=== PATIENT | female | born 1940 | race Caucasian/White ===

== ENCOUNTER 2019-08-13 18:26 | Emergency (ER) | payer MEDICARE, SELFPAY ==
[2019-08-13 18:33] VITALS: BP 150/81; PULSE 85; RESP 20; TEMP 37.1; O2SAT 98
--- NOTE | 2019-08-13 18:46 | ED.URI ---
HPI - URI/Sore Throat General Chief Complaint: Upper Respiratory Infection Stated Complaint: sinus pressure/chest congestion Time Seen by Provider: 08/13/19 18:51 Source: patient and family History of Present Illness HPI Narrative: Patient presents with a 2-week history of nasal congestion sinus pressure and tenderness. Patient uses Flonase daily for her symptoms taking Mucinex with minimal relief. No fever no shortness of breath no chest pain. Patient has asthma and uses her nebulizer machine as prescribed. Patient requests a refill for her albuterol for her machine. MD elicited complaint: cough, nasal congestion and sinus pain Related Data Home Medications Medication Instructions Recorded Confirmed cetirizine 10 mg capsule 10 mg PO cap 04/14/19 cholecalciferol (vitamin D3) 25 2,000 unit PO DAILY cap 04/14/19 08/13/19 mcg (1,000 unit) capsule cyclosporine 0.05 % eye drops in a 1 drop EACH EYE Q12H 04/14/19 08/13/19 dropperette levothyroxine 75 mcg tablet 75 mcg PO DAILY 04/14/19 08/13/19 vitamin A-vit C-vit E-zinc-Cu 2 tablet PO BID 04/14/19 08/13/19 fluticasone propionate [Flovent 1 puff INHALATION Q12H 08/13/19 08/13/19 HFA] Allergies Allergy/AdvReac Type Severity Reaction Status Date / Time pollen extracts Allergy Unknown unknown Verified 04/14/19 14:58 Review of Systems Review of Systems: Narrative: CONSTITUTIONAL: Denies chills, or sweats. Reports fever and generalized body aches EYES: Denies visual changes, redness, or discharge. ENT: Denies otalgia. Reports nasal congestion runny nose and sore throat CARDIOVASCULAR: Denies chest pain, palpitations, or edema. RESPIRATORY: Denies dyspnea. Reports occasional cough GASTROINTESTINAL: Denies abdominal pain, nausea, vomiting, or diarrhea. GENITOURINARY: Denies dysuria or hematuria. SKIN: Denies rash or itching. MUSCULOSKELETAL: Denies back pain, joint pain, or myalgia. Reports generalized body aches NEUROLOGIC: Denies headache, numbness, or weakness. PSYCHIATRIC: Denies anxiety or depression. [facility] Past Medical History Medical History Asthma High cholesterol History of pacemaker Hypothyroid Surgical History Surgical History History of appendectomy History of cataract extraction History of hysterectomy History of tonsillectomy Family History Family History Mother Family history of malignant neoplasm of breast in first degree relative Carcinoma of colon Father Family history of cardiovascular disease Social History Social History Smoking status: Former smoker Smoking end date: 06/04/1965 Alcohol intake: never Comments At time of signature, agree with nursing past medical, surgical, social and family history. There is no relevant family history pertinent to the presenting complaint Exam Narrative: Exam Narrative: The patient is a well-developed, well-nourished in no acute distress. SKIN: Skin is warm and dry without erythema, swelling or exudate. There is good turgor. No tenting. HEAD: Atraumatic. Normocephalic. No temporal or scalp tenderness. EYES: Moist and bright. Sclera and conjunctivae normal. No discharge. PERRLA. Extraocular motions intact. Gross visual acuity intact. EARS: Pinna is normal shape and contour. Clear external auditory canals. TM pearly valdovinos with good cone of light, no erythema or suppuration. Bilateral cerumen noted no gross hearing deficit. NOSE: pink, moist mucosa with good air movement. Clear rhinorrhea without nasal flaring. Septum midline. Mild maxillary sinus pressure and tenderness Mouth: moist mucous membranes. THROAT; mild erythema noted to posterior oropharynx with moderate postnasal drainage. Without exudate or ulceration.. Uvula midline. Normal movement of soft palate. NECK: Supple a
== END 2019-08-13 19:00 | disposition home or self-care (01) ==
PROVIDERS: Emergency Provider Nurse Practitioner Family; PCP Family Medicine
DX: J32.9 Chronic sinusitis, unspecified (principal); J40 Bronchitis, not specified as acute or chronic; Z87.891 Personal history of nicotine dependence; J45.909 Unspecified asthma, uncomplicated; E78.00 Pure hypercholesterolemia, unspecified; E03.9 Hypothyroidism, unspecified; Z95.0 Presence of cardiac pacemaker; Z98.49 Cataract extraction status, unspecified eye
CPT/HCPCS: 99213; G0463

== ENCOUNTER → 2019-12-15 09:08 | Outpatient (REF) | payer MEDICARE, SELFPAY | LOC: ANHLAB 09:08 | PROVIDERS: PCP Family Medicine; Visit Provider Nurse Practitioner | DX: L57.0 Actinic keratosis (principal) | CPT/HCPCS: 88305 ==

== ENCOUNTER 2020-03-03 11:50 | Emergency (ER) | payer MEDICARE, SELFPAY ==
--- NOTE | ~2020-03-03 | XR_ITS ---
EXAMINATION: XR chest 2V DATE: 03/03/2020 12:21 INDICATION: Cough and shortness of breath and wheezing. TECHNIQUE: Frontal and lateral views of the chest were obtained. COMPARISON: Chest 2 views 11/16/2014 FINDINGS: The chest demonstrates clear lungs without pneumonia, pleural effusion, or pneumothorax. Th e heart size is normal. There is a left chest wall pacer with leads in the right atrium and right cady tricle. There are prominent paracardial fat pads. There is an old healed fracture of left eighth rib. IMPRESSION: 1. No acute cardiopulmonary disease. Reviewed, dictated and finalized at location A.
[2020-03-03 12:00] VITALS: BP 117/66; PULSE 65; RESP 20; TEMP 37; O2SAT 97
--- NOTE | 2020-03-03 12:04 | ED.URI ---
HPI - URI/Sore Throat General Chief Complaint: Upper Respiratory Infection Stated Complaint: cough/chest tightness Time Seen by Provider: 03/03/20 12:04 Source: patient and RN notes reviewed History of Present Illness HPI Narrative: Patient is a 79-year-old female who presents the urgent care with complaints of 2-week persistent chest congestion, shortness of breath and cough. Patient states that approximately 1 month ago she was exposed to COVID while out to eat with her friend who tested positive the day after. Patient states that she was also tested 1 month ago, and her test was negative. Patient was not symptomatic at the time of her test. Patient became symptomatic starting with sinus symptoms and postnasal drainage approximately 2 weeks ago which is turned into the persistent white productive harsh cough, right rib pain and constant shortness of breath. Patient states that she has been doing 3-4 breathing treatments per day as well as using her inhaler and Singulair without any improvement. Patient denies any chest pains. States that she has been using Tylenol but denies of any known fever. Reports of loose stools for the past week. Denies of any vomiting. Patient also reports that her spouse has taken no precautions around her and has not been symptomatic. No other acute complaints. No acute distress noted. Patient aware of the plan of care. Some parts of this dictation were generated by voice recognition software and may contain typographical and/or grammatical inaccuracies. Related Data Home Medications Medication Instructions Recorded Confirmed cholecalciferol (vitamin D3) 25 2,000 unit PO DAILY cap 04/14/19 03/03/20 mcg (1,000 unit) capsule vitamin A-vit C-vit E-zinc-Cu 2 tablet PO BID 04/14/19 03/03/20 fluticasone propionate [Flovent 1 puff INHALATION Q12H 08/13/19 03/03/20 HFA] cetirizine [Zyrtec] 10 mg PO DAILY 03/03/20 03/03/20 cyclosporine [Restasis] 1 drp OPHTHALMIC (EYE) Q12H 03/03/20 03/03/20 montelukast [Singulair] 10 mg PO DAILY 03/03/20 03/03/20 vit C,Y-Nv-bhbfr-lutein-zeaxan 1 tablet PO BID 03/03/20 03/03/20 [PreserVision AREDS-2] Allergies Allergy/AdvReac Type Severity Reaction Status Date / Time pollen extracts Allergy Unknown unknown Verified 01/12/20 15:47 Review of Systems Review of Systems: Narrative: CONSTITUTIONAL: Denies fever, chills, or sweats. EYES: Denies visual changes, redness, or discharge. ENT: Denies rhinorrhea, congestion, sore throat, or otalgia. CARDIOVASCULAR: Denies chest pain, palpitations, or edema. RESPIRATORY: Reports a persistent productive cough with dyspnea and right rib pains GASTROINTESTINAL: Reports of loose stools GENITOURINARY: Denies dysuria or hematuria. SKIN: Denies rash or itching. MUSCULOSKELETAL: Denies back pain, joint pain, or myalgia. NEUROLOGIC: Denies headache, numbness, or weakness. All other systems reviewed are negative, except as documented in HPI. PMFSH Social History Social History Smoking status: Former smoker Smoking end date: 06/04/1965 Alcohol intake: never Comments At the time of my signature, I reviewed and agree with the nursing past medical, surgical, social, and family history. There is no relevant family history pertinent to the patient complaint. Exam Narrative: Exam Narrative: GENERAL: This is a well-nourished, well-developed patient, in no apparent distress. HEAD: normocephalic, atraumatic. EYES: PERRL. Sclera clear/white. Vision is grossly intact. EARS: External ears normal, auditory canals clear and without drainage, TMs normal without perforation. Hearing grossly intact. NOSE: External nose normal with no obvious nasal discharge, bilateral erythemic nares with clear rhinorrhea. THROAT: Mucous membranes moist, posterior pharynx clear. Mild postnasal drainage NECK: Neck supple CARDIOVASCULAR: Regular rate and rhythm without murmurs, gallops, or rubs. RESP
== END 2020-03-03 12:45 | disposition home or self-care (01) ==
PROVIDERS: Emergency Provider Nurse Practitioner Family; PCP Family Medicine
DX: J40 Bronchitis, not specified as acute or chronic (principal); Z87.891 Personal history of nicotine dependence; E78.00 Pure hypercholesterolemia, unspecified; Z95.0 Presence of cardiac pacemaker; E03.9 Hypothyroidism, unspecified
CPT/HCPCS: 71046; 87804; 99213; G0463

== ENCOUNTER 2020-03-16 14:18 | Emergency (ER) | payer MEDICARE, SELFPAY ==
[2020-03-16 14:30] VITALS: BP 146/69; PULSE 75; RESP 20; TEMP 36.7; O2SAT 97
--- NOTE | 2020-03-16 14:36 | ED.SKABFB ---
HPI - Skin/Abscess/Foreign Bdy General Chief complaint: Skin/Abscess/Foreign Body Stated complaint: upper left leg rash Time Seen by Provider: 03/16/20 14:41 Source: patient History of Present Illness HPI narrative: Patient presents with an itchy rash to her left inner thigh. Patient states is been there for about 1 week. Patient is concerned that it might be scabies states she was at a friend's house 2 weeks ago and they had scabies. No rash between her fingertips no rash between the webs of her fingers no way rash to the baseline. Patient only has 1 isolated area to her left inner thigh. Patient also reports that she is highly allergic to poison charisma and that her has been outside burning leaves and could have possibly picked up poison charisma from the . No streaking no drainage no concern for cellulitis. Related Data Home Medications Medication Instructions Recorded Confirmed cholecalciferol (vitamin D3) 25 2,000 unit PO DAILY cap 04/14/19 03/16/20 mcg (1,000 unit) capsule vitamin A-vit C-vit E-zinc-Cu 2 tablet PO BID 04/14/19 03/16/20 tablet fluticasone propionate [Flovent 1 puff INHALATION Q12H 08/13/19 03/16/20 HFA] cetirizine [Zyrtec] 10 mg PO DAILY 03/03/20 03/16/20 cyclosporine [Restasis] 1 drp OPHTHALMIC (EYE) Q12H 03/03/20 03/16/20 montelukast [Singulair] 10 mg PO DAILY 03/03/20 03/16/20 vit C,A-Ts-xatag-lutein-zeaxan 1 tablet PO BID 03/03/20 03/16/20 [PreserVision AREDS-2] Allergies Allergy/AdvReac Type Severity Reaction Status Date / Time pollen extracts Allergy Unknown unknown Verified 01/12/20 15:47 Review of Systems Review of Systems: Narrative: CONSTITUTIONAL: Denies fever, chills, or sweats. EYES: Denies visual changes, redness, or discharge. ENT: Denies rhinorrhea, congestion, sore throat, or otalgia. CARDIOVASCULAR: Denies chest pain, palpitations, or edema. RESPIRATORY: Denies cough or dyspnea. GASTROINTESTINAL: Denies abdominal pain, nausea, vomiting, or diarrhea. GENITOURINARY: Denies dysuria or hematuria. SKIN: Denies rash or itching. Itchy rash to left inner thigh MUSCULOSKELETAL: Denies back pain, joint pain, or myalgia. NEUROLOGIC: Denies headache, numbness, or weakness. PSYCHIATRIC: Denies anxiety or depression. [facility] Past Medical History Medical History Asthma High cholesterol History of pacemaker Hypothyroid Surgical History Surgical History History of appendectomy History of cataract extraction History of hysterectomy History of tonsillectomy Family History Family History Mother Family history of malignant neoplasm of breast in first degree relative Carcinoma of colon Father Family history of cardiovascular disease Social History Social History Smoking status: Former smoker Smoking end date: 06/04/1965 Alcohol intake: never Comments At time of signature, agree with nursing past medical, surgical, social and family history. There is no relevant family history pertinent to the presenting complaint Exam Narrative: Exam Narrative: GENERAL: Well-appearing, well-nourished, and in no acute distress. HEAD: Normocephalic, atraumatic. EYES: PERRLA and EOMI. ENT: Nares clear, no rhinorrhea or epistaxis. Mucous membranes moist. NECK: Supple. CHEST: Clear to auscultation. No respiratory distress. HEART: Regular rate and rhythm. No murmur heard. Normal peripheral pulses. ABDOMEN: Soft, nontender, nondistended, normal active bowel sounds. EXTREMITIES: Normal range of motion. No edema. SKIN: Warm, dry, no rash. NON SPECIFIC GENERALIZED RASH. NO FLUID FILLED LESIONS, NO VESICLES, NO HIVES OR URTICARIA, NO BURROWS OR RASH IN WEB SPACES TO INDICATE SCABIES, NO CONCERN FOR CELLULITIS OR ABSCESS FORMATION. NO PURPURA OR PETECHIA. DOES N
[2020-03-16 14:51] VITALS: BP 146/69; PULSE 75; RESP 20; TEMP 36.7; O2SAT 97
== END 2020-03-16 14:45 | disposition home or self-care (01) ==
PROVIDERS: Emergency Provider Nurse Practitioner Family; PCP Family Medicine
DX: L23.7 Allergic contact dermatitis due to plants, except food (principal); Z87.891 Personal history of nicotine dependence; E78.00 Pure hypercholesterolemia, unspecified; E03.9 Hypothyroidism, unspecified; J45.909 Unspecified asthma, uncomplicated; Z95.0 Presence of cardiac pacemaker; Z98.49 Cataract extraction status, unspecified eye
CPT/HCPCS: 99213; G0463

== ENCOUNTER 2020-09-11 14:12 | Emergency (ER) | payer MEDICARE, SELFPAY ==
--- NOTE | 2020-09-11 14:24 | ED.DENTAL ---
HPI - Dental/Oral General Chief complaint: Dental/Oral Stated complaint: Dental/Oral Time Seen by Provider: 09/11/20 14:25 Source: patient and RN notes reviewed History of Present Illness HPI Narrative: Patient is a 80-year-old female who presents the urgent care with complaints of left frontal dental pain. Patient states that she saw her dentist yesterday and they told her she needed a root canal. Patient was not given anything for pain or treated for infection at her appointment time. Patient states they are unable to do the root canal for another 2 weeks. Patient states the pain is gotten a lot more severe over the last 24 hours. Patient has been alternating Tylenol and Advil. Patient states that now she is having pain run down the left side of her jaw. Denies of any fever, chills, nausea, vomiting. No other acute complaints. No acute distress noted. Patient aware the plan of care. Some parts of this dictation were generated by voice recognition software and may contain typographical and/or grammatical inaccuracies. Related Data Home Medications Medication Instructions Recorded Confirmed cholecalciferol (vitamin D3) 25 2,000 unit PO DAILY cap 04/14/19 03/16/20 mcg (1,000 unit) capsule vitamin A-vit C-vit E-zinc-Cu 2 tablet PO BID 04/14/19 03/16/20 tablet fluticasone propionate [Flovent 1 puff INHALATION Q12H 08/13/19 03/16/20 HFA] cetirizine [Zyrtec] 10 mg PO DAILY 03/03/20 03/16/20 cyclosporine [Restasis] 1 drp OPHTHALMIC (EYE) Q12H 03/03/20 03/16/20 montelukast [Singulair] 10 mg PO DAILY 03/03/20 03/16/20 vit C,P-Ww-tifwe-lutein-zeaxan 1 tablet PO BID 03/03/20 03/16/20 [PreserVision AREDS-2] Allergies Allergy/AdvReac Type Severity Reaction Status Date / Time pollen extracts Allergy Unknown unknown Verified 09/11/20 14:27 Review of Systems Review of Systems: Narrative: CONSTITUTIONAL: Denies fever, chills, or sweats. EYES: Denies visual changes, redness, or discharge. ENT: Denies rhinorrhea, congestion, sore throat, or otalgia. Reports of left lower dental pain CARDIOVASCULAR: Denies chest pain, palpitations, or edema. RESPIRATORY: Denies cough or dyspnea. GASTROINTESTINAL: Denies abdominal pain, nausea, vomiting, or diarrhea. GENITOURINARY: Denies dysuria or hematuria. SKIN: Denies rash or itching. MUSCULOSKELETAL: Denies back pain, joint pain, or myalgia. NEUROLOGIC: Denies headache, numbness, or weakness. All other systems reviewed are negative, except as documented in HPI. [facility] Past Medical History Medical History (Updated 09/11/20 @ 14:37 by JONO Parham) Asthma High cholesterol History of pacemaker Hypothyroid Surgical History Surgical History History of appendectomy History of cataract extraction History of hysterectomy History of tonsillectomy Family History Family History Mother Family history of malignant neoplasm of breast in first degree relative Carcinoma of colon Father Family history of cardiovascular disease Social History Social History (Updated 03/19/20 @ 09:53 by Humera Fitzgerald) Years smoked: 6 Smoking status: Former smoker Tobacco type: cigarettes Second hand tobacco smoke exposure: Yes Smoking end date: 06/04/1965 Alcohol intake: current Substance use: never Substance use type: does not use Gender identity (if verbalized by the patient): Female Comments At the time of my signature, I reviewed and agree with the nursing past medical, surgical, social, and family history. There is no relevant family history pertinent to the patient complaint. Exam Narrative: Exam Narrative: GENERAL: This is a well-nourished, well-developed patient, in no apparent distress. HEAD: normocephalic, atraumatic. EYES: PERRL. Sclera clear/white. Vision is grossly intact. EARS: External ears normal NOSE: External nose normal wit
[2020-09-11 14:25] VITALS: BP 142/63; PULSE 70; RESP 18; TEMP 36.4; O2SAT 96
[2020-09-11 14:32] VITALS: BP 142/63; PULSE 70; RESP 18; TEMP 36.4; O2SAT 96
== END 2020-09-11 14:38 | disposition home or self-care (01) ==
PROVIDERS: Emergency Provider Nurse Practitioner Family; PCP Family Medicine
DX: K04.7 Periapical abscess without sinus (principal); Z87.891 Personal history of nicotine dependence; E78.00 Pure hypercholesterolemia, unspecified; E03.9 Hypothyroidism, unspecified; Z95.0 Presence of cardiac pacemaker
CPT/HCPCS: 99213; G0463

== ENCOUNTER 2021-02-15 09:47 | Outpatient (CLI) | payer MEDICARE, SELFPAY | END 2021-02-15 09:48 | disposition home or self-care (01) | LOC: ANHBWCAUD 09:48 | PROVIDERS: PCP Family Medicine; Visit Provider Otolaryngology | DX: H90.3 Sensorineural hearing loss, bilateral (principal) | CPT/HCPCS: 92557; 92567 ==

== ENCOUNTER 2021-03-29 12:30 | Outpatient (RCR) | payer MEDICARE, SELFPAY | END 2021-05-26 23:59 | disposition home or self-care (01) | LOC: ANHBWCAUD 12:30 | PROVIDERS: PCP Family Medicine; Visit Provider Family Medicine | DX: Z46.1 Encounter for fitting and adjustment of hearing aid (principal) | CPT/HCPCS: 99199; V5261 ==

== ENCOUNTER → 2021-09-26 10:48 | Outpatient (CLI) | payer MEDICARE, SELFPAY ==
--- NOTE | ~2021-09-26 | XR_ITS ---
EXAMINATION: XR hip RT min 2V DATE: 09/26/2021 11:02 INDICATION: Right hip pain. TECHNIQUE: 2 views of right hip were obtained. COMPARISON: None. FINDINGS: Bone alignment is normal. No fracture. There is mild right hip osteoarthritis. Osteitis pub is is noted. IMPRESSION: 1. Mild right hip osteoarthritis. Reviewed, dictated and finalized at location A.
== END ==
PROVIDERS: PCP Family Medicine; Visit Provider Family Medicine
DX: M16.11 Unilateral primary osteoarthritis, right hip (principal)
CPT/HCPCS: 73502

== ENCOUNTER 2021-12-17 14:16 | Emergency (ER) | payer MEDICARE, SELFPAY ==
[2021-12-17 14:20] VITALS: BP 136/59; PULSE 66; RESP 18; TEMP 36.8; O2SAT 97
--- NOTE | 2021-12-17 14:20 | ED.URI ---
HPI - URI/Sore Throat General Chief Complaint: Upper Respiratory Infection Stated Complaint: Sinus Pain/Ear Pain Time Seen by Provider: 12/17/21 14:20 Source: patient and RN notes reviewed History of Present Illness HPI Narrative: Patient is 81-year-old female presents the urgent care with complaints of right-sided sinus pain and ear pressure. Patient states that at the end of November she got an upper right molar worked on at the dentist and started to have a lot of swelling and pain. Patient was placed on steroids without much relief. States that for the last 2 days the symptoms have worsened and she has been using her nebulizer, Mucinex and Tylenol. Patient denies of any fevers, chills, nausea or vomiting. No other acute complaints. Patient was not placed on an antibiotic from the dentist. No acute distress noted. Patient aware of the plan of care. Some parts of this dictation were generated by voice recognition software and may contain typographical and/or grammatical inaccuracies. Related Data Allergies Allergy/AdvReac Type Severity Reaction Status Date / Time pollen extracts Allergy Unknown unknown Verified 12/17/21 14:39 Review of Systems Review of Systems: CONSTITUTIONAL: Denies fever, chills, or sweats. EYES: Denies visual changes, redness, or discharge. ENT: Reports of right otalgia and right upper dental pain with sinus pressure and postnasal drainage CARDIOVASCULAR: Denies chest pain, palpitations, or edema. RESPIRATORY: Denies cough or dyspnea. GASTROINTESTINAL: Denies abdominal pain, nausea, vomiting, or diarrhea. GENITOURINARY: Denies dysuria or hematuria. SKIN: Denies rash or itching. MUSCULOSKELETAL: Denies back pain, joint pain, or myalgia. NEUROLOGIC: Denies headache, numbness, or weakness. All other systems reviewed are negative, except as documented in HPI. COUNTS INCLUDE 234 BEDS AT THE [facility] Past Medical History Medical History Asthma High cholesterol History of pacemaker History of stress test Hypothyroid Pain of right hip Surgical History Surgical History History of appendectomy History of cataract extraction History of hysterectomy History of tonsillectomy Family History Family History Mother Family history of malignant neoplasm of breast in first degree relative Carcinoma of colon Father Family history of cardiovascular disease Social History Social History Years smoked: 6 Smoking status: Never smoker Tobacco type: cigarettes Second hand tobacco smoke exposure: Yes Smoking end date: 06/04/1965 Alcohol intake: current Alcohol use details: occasional Substance use: never Substance use type: does not use Gender identity (if verbalized by the patient): Female Sexual Orientation (if Verbalized by the Patient): Straight or Heterosexual Comments At the time of my signature, I reviewed and agree with the nursing past medical, surgical, social, and family history. There is no relevant family history pertinent to the patient complaint. Exam Narrative: GENERAL: This is a well-nourished, well-developed patient, in no apparent distress. HEAD: normocephalic, atraumatic. Mild tenderness to the right ethmoid and maxillary sinus cavity with slight erythema EYES: PERRL. Sclera clear/white. Vision is grossly intact. EARS: External ears normal, notable abrasion to the right auditory canal without otitis. Auditory canals clear and without drainage, TMs normal without perforation. Hearing grossly intact. NOSE: External nose normal with no obvious nasal discharge, nares without redness, no rhinorrhea. THROAT: Mucous membranes moist, posterior pharynx clear. Moderate postnasal drainage NECK: Neck supple, non-tender without lymphadenopathy, masses or thyromegaly. CARDIOVASCULAR: Regular
== END 2021-12-17 15:00 | disposition home or self-care (01) ==
PROVIDERS: Emergency Provider Nurse Practitioner Family; PCP Family Medicine
DX: K08.89 Other specified disorders of teeth and supporting structures (principal); J45.909 Unspecified asthma, uncomplicated; E78.00 Pure hypercholesterolemia, unspecified; Z95.0 Presence of cardiac pacemaker; E03.9 Hypothyroidism, unspecified; Z87.891 Personal history of nicotine dependence
CPT/HCPCS: 99213; G0463

== ENCOUNTER 2022-08-22 09:50 | Emergency (ER) | payer MEDICARE, SELFPAY ==
[2022-08-22 11:01] VITALS: BP 183/91; PULSE 71; RESP 16; TEMP 36.9; O2SAT 97
--- NOTE | 2022-08-22 11:34 | ED.SKABFB ---
HPI - Skin/Abscess/Foreign Bdy General Chief complaint: Skin/Abscess/Foreign Body Stated complaint: Allergies / sinus Time Seen by Provider: 08/22/22 11:35 Source: patient and RN notes reviewed Mode of arrival: ambulatory Limitations: no limitations History of Present Illness HPI narrative: 82-year-old female presents for concern for painful itchy rash to her right forehead and right eyelid. She reports symptoms started about a week ago and she thought neck large sinus related. She denies any runny nose, stuffy nose, general malaise, fever, aches. She denies vision changes. complaint: rash Related Data Allergies Allergy/AdvReac Type Severity Reaction Status Date / Time pollen extracts Allergy Unknown unknown Verified 08/22/22 10:44 Review of Systems Review of Systems: CONSTITUTIONAL: Denies malaise, chills, sweats, or fever. EYES: Denies redness, or discharge. Reports rash on the right eyelid ENT: Denies rhinorrhea, congestion, swollen lips, swollen tongue CARDIOVASCULAR: Denies chest pain, palpitations, or edema. RESPIRATORY: Denies cough or dyspnea. GASTROINTESTINAL: Denies abdominal pain, nausea, vomiting SKIN: Reports painful itchy rash to the right forehead and right eyelid MUSCULOSKELETAL: Denies joint pain or myalgia. NEUROLOGIC: Denies headache. All systems reviewed & are unremarkable except as noted in HPI and below PMFSH Past Medical History Medical History (Updated 08/22/22 @ 11:42 by Norma Ma NP) Asthma High cholesterol History of pacemaker History of stress test Hypothyroid Microscopic hematuria Pain of right hip Surgical History Surgical History History of appendectomy History of cataract extraction History of hysterectomy History of tonsillectomy Family History Family History Mother Family history of malignant neoplasm of breast in first degree relative Carcinoma of colon Father Family history of cardiovascular disease Social History Social History Years smoked: 6 Smoking status: Never smoker Tobacco type: cigarettes Second hand tobacco smoke exposure: Yes Smoking end date: 06/04/1965 Alcohol intake: current Alcohol use details: occasional Substance use: never Substance use type: does not use Living arrangements: with family Occupation/Education: retired Gender identity (if verbalized by the patient): Female Sexual Orientation (if Verbalized by the Patient): Straight or Heterosexual Comments At time of signature, agree with nursing past medical, surgical, social and family history. There is no relevant family history pertinent to the presenting complaint Exam Narrative: GENERAL: Well-appearing, well-nourished, and in no acute distress. HEAD: Normocephalic, atraumatic. EYES: PERRLA, conjunctivae clear, and EOMI. Opthalmic exam limited, referred to eye doctor ENT: Mucous membranes moist. Oropharynx without edema, erythema or lesions. NECK: Supple. No lymphadenopathy CHEST: Clear to auscultation. No respiratory distress. HEART: Regular rate and rhythm. SKIN: Warm, dry. Zosteriform rash noted to the right forehead and eyelid NEURO: Alert and oriented x3. PSYCH: Normal mood and affect Course Course Emergency Course: Patient is aware of diagnosis, understands and agrees to treatment plan. Anticipatory guidance given. Patient agrees to follow-up as directed and is aware of reasons to seek care at the emergency department. Portions of this record may have been created with voice recognition software Level of Care: Express Care Visit Vital Signs Vital signs: Vital Signs Temperature 98.4 F 08/22/22 11:01 Pulse Rate 71 08/22/22 11:01 Respiratory Rate 16 08/22/22 11:01 Blood Pressure 183/91 H 08/22/22 11:01 Pulse Oximetry 97 08/22/22 11:01 Oxygen Delivery Room Air 0
== END 2022-08-22 11:49 | disposition home or self-care (01) ==
PROVIDERS: Emergency Provider Nurse Practitioner; PCP Family Medicine
DX: B02.9 Zoster without complications (principal); Z76.0 Encounter for issue of repeat prescription; J45.909 Unspecified asthma, uncomplicated; E78.00 Pure hypercholesterolemia, unspecified; Z95.0 Presence of cardiac pacemaker; E03.9 Hypothyroidism, unspecified; Z87.891 Personal history of nicotine dependence
CPT/HCPCS: 99213; G0463

== ENCOUNTER 2022-09-11 09:50 | Outpatient (CLI) | payer MEDICARE, SELFPAY ==
--- NOTE | ~2022-09-11 | DEXA_ITS ---
Bone Density Report Name: ABHISHEK AU Age: 82 Sex: Female Ethnicity: White Date of : 1940 Indication: postmenopausal; screening for osteoporosis; height loss; Referring Provider: GIANLUCA OLIVER Study: Bone densitometry was performed. Exam Date: September 11, 2022 Accession number: [id number] Bone Density: Region BMD T-score Z-score Classification AP Spine(L1-L4) 0.947 -0.9 1.8 Normal Femoral Neck (Left) 0.670 -1.6 0.7 Osteopenia Total Hip (Left) 0.894 -0.4 1.7 Normal Femoral Neck (Right) 0.679 -1.5 0.8 Osteopenia Total Hip (Right) 0.890 -0.4 1.6 Normal Total Hip Mean 0.892 -0.4 1.7 Normal World Health Organization criteria for BMD impression classify patients as: Normal (T-score at or above -1.0), Osteopenia (T-score between -1.0 and -2.5), or Osteoporosis (T-score at or below -2.5). 10-year Fracture Risk(1): Major Osteoporotic Fracture 14% Hip Fracture 3.4% Reported Risk Factors: [place] (), Neck BMD=0.670, BMI=28.9 (1) FRAX(R) Version 3.08. Fracture probability calculated for an untreated patient. Fracture probability may be lower if the patient has received treatment. Previous Exams: Region Exam Age BMD T-score BMD Change BMD Change Date g/cm2 vs Baseline vs Previous AP Spine (L1-L4) 09/11/2022 82 0.947 -0.9 -0.017 (-1.8%) -0.017 (-1.8%) 12/26/2016 76 0.964 -0.8 Total Hip(Left) 09/11/2022 82 0.894 -0.4 0.004 (0.5%) 0.004 (0.5%) 12/26/2016 76 0.890 -0.4 Total Hip(Right) 09/11/2022 82 0.890 -0.4 0.027 (3.1%) 0.027 (3.1%) 12/26/2016 76 0.863 -0.6 *Denotes significance at 95% confidence level, LSC for AP Spine = 0.022 g/cm2, LSC for Total Hip = 0.027 g/cm2 Clinical Information Provided by Patient: Patient maximum height was 69 Menopause Age: 42 No regular weight bearing exercise Drinks caffeinated beverages Onset of menses at age 16 Number of children 4 Impression: The patient has low bone mass, based on the Left Femoral Neck T-score. The patient has an estimated ten-year risk of hip fracture of 3.4% and an estimated ten-year risk of major fracture of 14%, based on the WHO FRAX algorithm. No significant bone loss was observed. Discussion: BONE DENSITY IS LOW AT ONE OR MORE SKELETAL SITES. THE PATIENT'S BMD AND CLINICAL RISK FACTORS CONTRIBUTE TO THIS PATIENT'S INCREASED RISK OF FRACTURE. This patient's lowest T-score is low at one or more skeletal si
--- NOTE | ~2022-09-11 | MM_ITS ---
EXAMINATION: MM screening ana maria BI w tito HISTORY: Screening mammogram TECHNIQUE: Craniocaudal and mediolateral oblique 3-D tomosynthesis images were obtained and synthetic 2-D images were generated. CAD analysis was submitted and interpreted. COMPARISON: 10/18/2018, 12/26/2016 bilateral screening mammogram examinations BREAST PARENCHYMAL COMPOSITION: The breasts are heterogeneously dense, which may obscure small masses . FINDINGS: Minimal benign calcification including arterial. There is no evidence of suspicious mass, c alcification, or architectural distortion to suggest malignancy in either breast. There has been no s uspicious interval change. IMPRESSION: 1. No mammographic evidence of malignancy. 2. Recommend routine screening mammography in one year. BI-RADS Category 1: Negative Reviewed, dictated and finalized at location A.
== END 2022-09-11 09:51 | disposition home or self-care (01) ==
LOC: ANHIMG 09:51
PROVIDERS: PCP Family Medicine; Visit Provider Family Medicine
DX: Z12.31 Encounter for screening mammogram for malignant neoplasm of breast (principal); Z78.0 Asymptomatic menopausal state; M85.852 Other specified disorders of bone density and structure, left thigh; M85.851 Other specified disorders of bone density and structure, right thigh
CPT/HCPCS: 77063; 77067; 77080

== ENCOUNTER 2023-05-04 09:28 | Emergency (ER) | payer MEDICARE, SELFPAY ==
--- NOTE | ~2023-05-04 | XR_ITS ---
EXAMINATION: XR chest 2V DATE: 05/04/2023 10:17 INDICATION: Shortness of breath. Cough. TECHNIQUE: Frontal and lateral views of the chest were obtained. COMPARISON: Chest 2 views 03/03/2020 FINDINGS: There is no pneumonia, pleural effusion, or pneumothorax. The heart size is normal. There i s a left chest wall pacer with leads in the right atrium and right ventricle. There is an old healed fracture of left eighth rib. IMPRESSION: 1. No acute cardiopulmonary disease. Reviewed, dictated and finalized at location A. INE CRATER
[2023-05-04 09:30] VITALS: BP 137/76; PULSE 74; RESP 20; TEMP 36.9; O2SAT 98
--- NOTE | 2023-05-04 10:18 | ED.URI ---
HPI - URI/Sore Throat General Chief Complaint: Upper Respiratory Infection Stated Complaint: Shortness of Breath/Cough Time Seen by Provider: 05/04/23 09:40 Source: patient Mode of arrival: ambulatory Limitations: no limitations History of Present Illness HPI Narrative: Simran is an 82-year-old female patient presenting to the clinic today with complaints of cough, chest and nasal congestion, shortness of breath, and sore throat times 1 week. She reports she does have a history of asthma it seems as though her symptoms are getting worse. She reports coughing up some yellow phlegm. She denies any fever or chills. MD elicited complaint: sore throat and nasal congestion Related Data Allergies Allergy/AdvReac Type Severity Reaction Status Date / Time pollen extracts Allergy Unknown unknown Verified 04/04/23 09:06 Review of Systems Review of Systems: Pertinent positives per HPI. Patient denies any fever, chills, rash, headache, visual changes, dizziness, chest pain, palpitations, nausea, vomiting, diarrhea, constipation, abdominal pain, or any urinary issues. [facility] Past Medical History Medical History Asthma Chronically dry eyes High cholesterol History of pacemaker History of stress test Hypothyroid Microscopic hematuria Pain of right hip Surgical History Surgical History History of appendectomy History of cataract extraction History of hysterectomy History of tonsillectomy Family History Family History Mother Family history of malignant neoplasm of breast in first degree relative Carcinoma of colon Father Family history of cardiovascular disease Social History Social History Years smoked: 6 Smoking status: Never smoker Tobacco type: cigarettes Second hand tobacco smoke exposure: Yes Smoking end date: 06/04/1965 Alcohol intake: current Alcohol use details: occasional Substance use: never Substance use type: does not use Living arrangements: with family Occupation/Education: retired Gender identity (if verbalized by the patient): Female Sexual Orientation (if Verbalized by the Patient): Straight or Heterosexual Comments At the time of my signature, I reviewed and agree with the nursing past medical, surgical, social, and family history. There is no relevant family history pertinent to the patient complaint. Exam Narrative: General: Well-developed, well nourished, in no apparent distress Head: Normocephalic, atraumatic Eyes: Pupils equally round and reactive to light bilaterally, EOM intact, sclera and conjunctive clear, no discharge, lids normal Ears: TMs intact and clear, ear canals clear, no drainage, grossly hearing normal. Nose: Nares patent, clear nasal discharge, no inflammation, no sinus tenderness. Mouth: Oral pharynx without lesions or masses, good dentition, MMM. Postnasal drip Neck: Supple, trachea midline, no enlargement of anterior or posterior cervical nodes, no thyroid masses or goiter palpable. Cardio: Regular rate and rhythm, s1 and s2 normal, no murmur appreciated. Resp: Rhonchi and expiratory wheezing with crackles in the bases, no rubs Course Course Emergency Course: Portions of this record may have been created with voice recognition software. Level of Care: Express Care Visit Vital Signs Vital signs: Vital Signs Temperature 36.9 C 05/04/23 09:30 Pulse Rate 74 05/04/23 09:30 Respiratory Rate 20 05/04/23 09:30 Blood Pressure 137/76 05/04/23 09:30 Pulse Oximetry 98 05/04/23 09:30 Oxygen Delivery Room Air 05/04/23 09:30 Temperature 36.9 C 05/04/23 09:30 Pulse Rate 74 05/04/23 09:30 Respiratory Rate 20 05/04/23 09:30 Blood Pressure 137/76 05/04/23 09:30 Pulse Oximet
== END 2023-05-04 10:40 | disposition home or self-care (01) ==
PROVIDERS: Emergency Provider Nurse Practitioner Family; PCP Family Medicine
DX: J45.41 Moderate persistent asthma with (acute) exacerbation (principal); Z87.891 Personal history of nicotine dependence; E78.00 Pure hypercholesterolemia, unspecified; E03.9 Hypothyroidism, unspecified; Z95.0 Presence of cardiac pacemaker
CPT/HCPCS: 71046; 99213; G0463

== ENCOUNTER 2024-02-05 09:05 | Emergency (ER) | payer MEDICARE, SELFPAY ==
--- NOTE | 2024-02-05 09:08 | ED.URI ---
HPI - URI/Sore Throat General Chief Complaint: Upper Respiratory Infection Stated Complaint: Allergies causing pain Time Seen by Provider: 02/05/24 09:24 Source: patient, RN notes reviewed and old records reviewed Mode of arrival: ambulatory Limitations: no limitations History of Present Illness HPI Narrative: 83-year-old female presents to the [facility] with complaints of right-sided facial discomfort, ear pain. Has history of seasonal allergies. Symptoms started 4-5 days Onset (ago): day(s) (4-5) Treatments prior to arrival: cold medicine Related Data Allergies Allergy/AdvReac Type Severity Reaction Status Date / Time pollen extracts Allergy Unknown unknown Verified 02/05/24 09:06 Review of Systems Review of Systems: All systems reviewed & are unremarkable except as noted in HPI and below Constitutional: Constitutional: Reports no additional constitutional complaints Eyes: Eyes: Reports no additional eye complaints ENT: Reports as per HPI, Reports otalgia, Reports facial pain, Reports headache(s), Reports post nasal drip and Reports sinus pressure Cardiovascular: Cardiovascular: Reports no additional cardiovascular complaints, Denies chest pain and Denies dyspnea Respiratory: Respiratory: Reports no additional respiratory complaints, Denies chest congestion, Denies cough and Denies dyspnea Gastrointestinal: Gastrointestinal: Reports no additional gastrointestinal complaints, Denies abdominal pain, Denies nausea and Denies vomiting Musculoskeletal: Musculoskeletal: Reports no additional musculoskeletal complaints Integumentary/Breasts: Skin/Breast: Reports system reviewed and no additional complaints, except as docu Neurologic: Reports system reviewed and no additional complaints, except as documented Psychiatric: Psychiatric: Reports no additional psychiatric complaints Allergic/Immunologic: Allergic/Immunologic: Reports no additional allergic/immunologic complaints [facility] Past Medical History Medical History Asthma Chronically dry eyes High cholesterol History of pacemaker History of stress test Hypothyroid Microscopic hematuria Pain of right hip Surgical History Surgical History History of appendectomy History of cataract extraction History of hysterectomy History of tonsillectomy Family History Family History Mother Family history of malignant neoplasm of breast in first degree relative Carcinoma of colon Father Family history of cardiovascular disease Social History Social History Years smoked: 6 Smoking status: Never smoker Tobacco type: cigarettes Second hand tobacco smoke exposure: Yes Smoking end date: 06/04/1965 Alcohol intake: current Alcohol use details: occasional Substance use: never Substance use type: does not use Living arrangements: with family Occupation/Education: retired Gender identity (if verbalized by the patient): Female Sexual Orientation (if Verbalized by the Patient): Straight or Heterosexual Comments At the time of my signature, I reviewed and agree with the nursing past medical, surgical, social, and family history. There is no relevant family history pertinent to the patient complaint. Exam Const: General: cooperative, no acute distress, well developed, alert, uncomfortable and well nourished Nutritional Appearance: well nourished Orientation/consciousness: patient oriented x3 Limitations: no limitations HENMT: Head: normal to inspection Ears: hearing grossly normal bilaterally, external ears normal, EAC's normal, mastoids normal, no periauricular adenopathy and TM abnormal with fluid behind the TM bilateral Face/Nose/Sinus: Normal external nose present, Normal nares present, Normal nasal mucous membranes and turbin
[2024-02-05 09:10] VITALS: BP 137/76; PULSE 59; RESP 20; TEMP 36.3; O2SAT 100
[2024-02-05 09:41] LABS: EDINFLUASCREEN Negative; EDINFLUBSCREEN Negative
== END 2024-02-05 09:50 | disposition home or self-care (01) ==
PROVIDERS: Emergency Provider Nurse Practitioner; PCP Family Medicine
DX: J01.40 Acute pansinusitis, unspecified (principal); Z20.822 Contact with and (suspected) exposure to COVID-19; Z87.891 Personal history of nicotine dependence; J45.909 Unspecified asthma, uncomplicated; E78.00 Pure hypercholesterolemia, unspecified; E03.9 Hypothyroidism, unspecified; Z95.0 Presence of cardiac pacemaker
CPT/HCPCS: 87426; 87804; 99213; G0463

== ENCOUNTER 2024-11-25 08:23 | Emergency (ER) | payer MEDICARE, SELFPAY ==
--- NOTE | 2024-11-25 08:24 | ED.URI ---
HPI - URI/Sore Throat General Chief Complaint: Upper Respiratory Infection Stated Complaint: sinus congestion Source: patient Mode of arrival: ambulatory Limitations: no limitations History of Present Illness HPI Narrative: Patient is a 84 year old female who presents to the clinic for sinus congestion and right ear pain for 5 days. She states that she has been taking Mucinex and aspirin over the counter, but has had minimal relief. Patient is currently rating her ear pain an 8/10. Denies any shortness of breath, fevers, nausea, vomiting, or diarrhea. Related Data Allergies Allergy/AdvReac Type Severity Reaction Status Date / Time pollen extracts Allergy Unknown unknown Verified 11/25/24 08:29 Review of Systems Review of Systems: CONSTITUTIONAL: Denies body aches, fever, chills, or sweats. EYES: Denies visual changes, redness, or discharge. ENT: Reports congestion and right otalgia. Denies sore throat. CARDIOVASCULAR: Denies chest pain, palpitations, or edema. RESPIRATORY: Denies cough or dyspnea. GASTROINTESTINAL: Denies abdominal pain, nausea, vomiting, or diarrhea. GENITOURINARY: Denies dysuria or hematuria. SKIN: Denies rash, itching, or wounds. MUSCULOSKELETAL: Denies back pain, joint pain, or myalgia. NEUROLOGIC: Denies headache, numbness, tingling, or weakness. PSYCH: Denies depression or anxiety. All systems reviewed & are unremarkable except as noted in HPI and below PMFSH Past Medical History Medical History Chronically dry eyes Microscopic hematuria History of stress test Pain of right hip History of pacemaker Asthma Hypothyroid High cholesterol Surgical History Surgical History History of cataract extraction History of hysterectomy History of appendectomy History of tonsillectomy Family History Family History Mother Family history of malignant neoplasm of breast in first degree relative Carcinoma of colon Father Family history of cardiovascular disease Social History Social History Years smoked: 6 Smoking status: Never smoker Tobacco type: cigarettes Second hand tobacco smoke exposure: Yes Smoking end date: 06/04/1965 Alcohol intake: current Alcohol use details: occasional Substance use: never Substance use type: does not use Living arrangements: with family Occupation/Education: retired Gender identity (if verbalized by the patient): Female Sexual Orientation (if Verbalized by the Patient): Straight or Heterosexual Comments At time of signature, I have reviewed and agree with nursing past medical, surgical, social and family history unless otherwise noted. Please see nursing chart for further information. There is no relevant family history pertinent to the presenting complaint. Exam Narrative: GENERAL: Well-appearing, well-nourished, and in no acute distress. EYES: EOMI. No redness or drainage. Conjunctivae normal. ENT: Mucous membranes pink and moist. Nares clear. R TM erythematous, bulging and intact; canal not erythematous, no drainage, no tragal tenderness. Left TM with normal light reflex. No Throat Erythema without tonsillar exudate, uvula midline. Nasal congestion noted. NECK: Normal AROM. Supple. No lymphadenopathy. CHEST: No respiratory distress. Clear to auscultation. HEART: Regular rate and rhythm. No murmur appreciated. Normal peripheral pulses. ABDOMEN: Soft, nontender, nondistended, normal active bowel sounds. SKIN: Warm, dry, no rash. Capillary refill normal. Normal skin turgor. NEURO: No focal deficits. Alert and oriented x3. Gait steady. PSYCH: Normal affect. No signs of depression or anxiety. Course Course Level of Care: Express Care Visit Vital Signs Vital signs: Vital Signs Temperature 98.5 F 11/25/24 08:31 Pulse Rate 66 11/25/24 08:31 Respiratory Rate 20 11/25/24 08:31 Blood Pressure 135/74 11/25/24 08:31 Pulse Oximetry 97 11/25/24 08:31 Oxygen Delivery Room Air 11/25/24 08:31 Temperature 98.5 F 11/25/24 08:31 Pulse Rate 66 11/25/24 08:31 Respiratory Rate 20 11/25/24 08:31 Blood Pressure 135/74 11/25/24 08:31 Pulse Oximetry 97 11/25/24 08:31 Oxygen Delivery Room Air 11/25/24 08:31 MDM - URI/Sore Throat MDM Narrative Medical decision making narrative: Discussed physical exam findings. Prescription for Amoxicillin and Flonase. Advised supportive measures and signs/symptoms to go to the ER. Pt is appropriate for outpt treatment and follow up. Differential Diagnosis Differential diagnosis: Likely upper respiratory infection, otitis media, sinusitis and viral infection Critical Care Time Critical Care Time Critical Care Time: No Discharge Plan Discharge Clinical Impression: Otitis media Qualifiers: Otitis media type: suppurative Chronicity: acute Laterality: right Recurrence: non-recurrent Spontaneous tympanic membrane rupture: without spontaneous rupture Qualified Code(s): H66.001 - Acute suppurative otitis media without spontaneous rupture of ear drum, right ear Upper respiratory infection Qualifiers: URI type: unspecified URI Qualified Code(s): J06.9 - Acute upper respiratory infection, unspecified Patient Disposition: Home Condition: Stable Instructions: Ear Infection (ED), Upper Respiratory Infection (DC) Additional Instructions: Take antibiotics as directed. Recommend antihistamine such as Claritin or Zyrtec for sinus congestion Flonase nasal spray, 1 spray in each nostril twice daily until symptoms improve Symptomatic treatment includes: rest, fluids, and increase humidity of the air at home. Tylenol every 8 hours as needed to reduce fever, pain Please schedule a follow-up visit with your personal physician for further evaluation and treatment within 3-5days. If your symptoms persist, change or worsen significantly, go to the emergency department for further evaluation. Patient Language: Bulgarian Prescriptions: New amoxicillin 875 mg tablet 875 mg PO Q12H 7 Days Qty: 14 0RF fluticasone propionate [Flonase Allergy Relief] 50 mcg/actuation spray,suspension 1 spray intranasal BID Qty: 16 0RF Rx Instructions: administer into each nostril No Action levothyroxine 75 mcg tablet 75 mcg PO DAILY Qty: 90 2RF atorvastatin 40 mg tablet 40 mg PO DAILY Qty: 90 3RF montelukast [Singulair] 10 mg tablet 10 mg PO DAILY Qty: 90 3RF albuterol sulfate 2.5 mg /3 mL (0.083 %) solution for nebulization 2.5 mg INHALATION Q4-6H PRN (Reason: shortness of breath or wheezing) Qty: 180 2RF Follow-up/Referrals: Arvind Garcia MD [Primary Care Provider] - Time of Disposition: 08:44
[2024-11-25 08:31] VITALS: BP 135/74; PULSE 66; RESP 20; TEMP 36.9; O2SAT 97
== END 2024-11-25 08:45 | disposition home or self-care (01) ==
PROVIDERS: PCP Family Medicine
DX: H66.001 Acute suppurative otitis media without spontaneous rupture of ear drum, right ear (principal); J06.9 Acute upper respiratory infection, unspecified; Z87.891 Personal history of nicotine dependence; J45.909 Unspecified asthma, uncomplicated; E03.9 Hypothyroidism, unspecified; E78.00 Pure hypercholesterolemia, unspecified; Z95.0 Presence of cardiac pacemaker
CPT/HCPCS: 99213; G0463

== ENCOUNTER 2025-03-05 09:36 | Emergency (ER) | payer MEDICARE, SELFPAY ==
--- NOTE | ~2025-03-05 | XR_ITS ---
EXAMINATION: XR foot LT min 3V DATE: 03/05/2025 10:04 INDICATION: Left foot pain, swelling and erythema. TECHNIQUE: Dorsoplantar, two oblique and lateral views of the left foot were obtained. COMPARISON: None. FINDINGS: Diffuse osteopenia. Bone alignment is normal. No fracture. Mild polyarticular osteoarthritis involving the majority of the joints throughout the left foot. Soft tissues are unremarkable. No ankle joint effusion. IMPRESSION: 1. 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 No acute osseous abnormality. Reviewed, dictated and finalized at location A.
[2025-03-05 09:49] VITALS: BP 121/72; PULSE 77; RESP 16; TEMP 36.6; O2SAT 96
--- NOTE | 2025-03-05 10:42 | ED_ITS ---
HPI - Extremity Problem General Chief complaint: Extremity Injury, Lower Stated complaint: L foot pain Time Seen by Provider: 03/05/25 10:25 Source: patient and RN notes reviewed Mode of arrival: ambulatory Limitations: no limitations History of Present Illness HPI Narrative: 84-year-old female presents Express Care complaining of left foot pain and swelling for 2 days. Patient denies any falls or injury. Patient reports she has been doing a lot a yd work and been on her feet a lot more than usual since her family is in town. Patient reports pain mainly with bearing weight to her left foot. Patient denies any history of gout. Patient has tried compression is not trending also [id number] to help with symptoms. Related Data Allergies Allergy/AdvReac Type Severity Reaction Status Date / Time pollen extracts Allergy Unknown unknown Verified 03/05/25 09:50 Review of Systems Review of Systems: CONSTITUTIONAL: Denies fever, chills, or sweats. EYES: Denies visual changes, redness, or discharge. ENT: Denies rhinorrhea, congestion, sore throat, or otalgia. CARDIOVASCULAR: Denies chest pain, palpitations, or edema. RESPIRATORY: Denies cough or dyspnea. GASTROINTESTINAL: Denies abdominal pain, nausea, vomiting, or diarrhea. GENITOURINARY: Denies dysuria or hematuria. SKIN: Denies rash, wound, or itching. MUSCULOSKELETAL: Denies back pain, joint pain, or myalgia. Positive for left foot pain and swelling. NEUROLOGIC: Denies headache, numbness, or weakness. PSYCHIATRIC: Denies anxiety or depression. All other systems reviewed are negative, except as documented in HPI. [facility]LY [facility] Past Medical History Medical History Chronically dry eyes Microscopic hematuria History of stress test Pain of right hip History of pacemaker Asthma Hypothyroid High cholesterol Surgical History Surgical History History of cataract extraction History of hysterectomy History of appendectomy History of tonsillectomy Family History Family History Mother Family history of malignant neoplasm of breast in first degree relative Carcinoma of colon Father Family history of cardiovascular disease Social History Social History (Reviewed 03/05/25 @ 10:43 by JASON Nelson Social History: Years smoked: 6 Smoking status: Former smoker Tobacco type: cigarettes Second hand tobacco smoke exposure: Yes Smoking end date: 06/04/1965 Alcohol intake: current Alcohol use details: occasional Substance use: never Substance use type: does not use Difficulty Paying Gas/Electric Bills: No Difficulty Paying for Meds: No Currently Unemployed: YES Education: Don't Know Difficulty w/ Childcare or Family Care: No Living arrangements: with family Occupation/Education: retired Gender identity (if verbalized by the patient): Female Sexual Orientation (if Verbalized by the Patient): Straight or Heterosexual Comments At the time of my signature, I reviewed and agree with the nursing past medical, surgical, social, and family history. There is no relevant family history pertinent to the patient complaint. Exam Narrative: GENERAL: This is a well-nourished, well-developed adult, in no apparent distress. They are non ill-appearing, nontoxic appearing. HEAD: normocephalic, atraumatic. EYES: Sclera clear/white. Vision is grossly intact. Conjunctiva normal. Extraocular movement intact. EARS: External ears normal Hearing grossly intact. NOSE: External nose normal THROAT: Mucous membranes moist NECK: Neck supple CARDIOVASCULAR: Regular rate and rhythm RESPIRATORY: Respiratory rate normal, respiratory effort nonlabored, no respiratory distress NEURO: awake, alert, and oriented to person, place and time. There were no obvious focal neurologic abnormalities. EXTREMITIES: Left foot: No obvious deformity, injury, bruising,. Left foot is edematous and nonpitting. There is erythema near the 1st MCP joint and 5th MCP joint. First MCP and 5th MCPs or nontender to palpate. Foot is cool to touch. Normal range of motion. No bony tenderness. Capillary refill less than 3 seconds. Left pedal Pulse 2 +palpable. Normal sensation. Patient is able to wiggle her toes. Neurovascular status intact distal injury. BACK: Nontender without deformity. Course Course Emergency Course: Portions of this record may have been created with voice recognition software Level of Care: Express Care Visit Vital Signs Vital signs: Vital Signs Temperature 97.9 F 03/05/25 09:49 Pulse Rate 77 03/05/25 09:49 Respiratory Rate 16 03/05/25 09:49 Blood Pressure 121/72 03/05/25 09:49 Pulse Oximetry 96 03/05/25 09:49 Temperature 97.9 F 03/05/25 09:49 Pulse Rate 77 03/05/25 09:49 Respiratory Rate 16 03/05/25 09:49 Blood Pressure 121/72 03/05/25 09:49 Pulse Oximetry 96 03/05/25 09:49 Reviewed MDM - Extremity (Nontraumatic) MDM Narrative Medical decision making narrative: X-ray of left foot negative for any fractures or acute findings. Osteopenia noted along with mild poly arthritic changes. Low suspicion for gout. Patient likely has arthritis flare up. Recommend conservative therapy. Discussed rice therapy with patient. Patient given Bari wrap for compression. Advised patient to follow-up with PCP about osteopenia as she needs to be evaluated for osteoporosis. Discussed physical exam findings. Advised supportive measures and signs/symptoms to go to the ER. Pt is appropriate for outpt treatment and f/u. Differential Diagnosis Differential diagnosis: Likely gout, cellulitis and other (Arthritis, foot sprain, foot fracture) Imaging Data Attestation: I personally reviewed and interpreted this imaging study as follows: Radiologist's impression: ITS Impressions Foot X-Ray 03/05/25 10:07 IMPRESSION: 1. 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 No acute osseous abnormality. Critical Care Time Critical Care Time Critical Care Time: No Discharge Plan Discharge Clinical Impression: Arthritis of foot, left Patient Disposition: Home Condition: Stable Instructions: Arthritis (ED) Additional Instructions: The x-ray of left foot is negative for any fractures or acute findings. Incidental finding of a osteopenia to her left foot. Please follow-up with your PCP further testing for osteoporosis. Also noted arthritis in her left foot which is likely the reasoning of your pain and swelling. Rest and elevate the leg; bear weight as tolerated Apply ice 15-20 minute intervals several times a day Keep it wrapped with BARI You may take ibuprofen 600 mg to 800 mg every 6-8 hours. Do not exceed more than 800 mg of ibuprofen per dose. Do not exceed more than 3200 mg ibuprofen in a day. You may take up to 1000 mg Tylenol every 6-8 hours. Do not exceed 1000 mg per dose, do exceed more than 4000 mg of Tylenol in a day. Follow up with your primary care provider in 1-2 weeks. Patient Language: Slovenian Prescriptions: No Action levothyroxine 75 mcg tablet 75 mcg PO DAILY Qty: 90 2RF atorvastatin 40 mg tablet 40 mg PO DAILY Qty: 90 3RF montelukast [Singulair] 10 mg tablet 10 mg PO DAILY Qty: 90 3RF fluticasone propionate [Flonase Allergy Relief] 50 mcg/actuation spray,suspension 1 spray intranasal BID Qty: 16 2RF Rx Instructions: administer into each nostril albuterol sulfate 2.5 mg /3 mL (0.083 %) solution for nebulization 2.5 mg INHALATION Q4-6H PRN (Reason: shortness of breath or wheezing) Qty: 180 2RF Follow-up/Referrals: Arvind Garcia MD [Primary Care Provider, Family Practice] Time of Disposition: 10:30
== END 2025-03-05 10:32 | disposition home or self-care (01) ==
PROVIDERS: PCP Family Medicine
DX: M19.072 Primary osteoarthritis, left ankle and foot (principal); E03.9 Hypothyroidism, unspecified; Z87.891 Personal history of nicotine dependence
CPT/HCPCS: 73630; 99213; G0463

== ENCOUNTER 2025-04-02 11:03 | Outpatient (CLI) | payer MEDICARE, SELFPAY ==
--- NOTE | ~2025-04-02 | CT_ITS ---
EXAMINATION: CT sinus wo con COMPARISON: None HISTORY: Chronic rhinitis TECHNIQUE: Axial images were obtained without IV contrast. Sagittal, coronal reconstruction images were obtained from the axial views. CT scan performed using dose optimization techniques including the following automated exposure control; adjustment of mA and/or kV; use of iterative reconstruction technique. Automatic exposure control was used to reduce radiation dose. Permanent radiation dose record is archived to PACS. FINDINGS: Visualized brain parenchyma and optic globes appear unremarkable. The soft tissues are unremarkable Frontal sinus is unremarkable. Minimal mucosal thickening in the ethmoidal air cells. Left maxillary sinus mucous retention cyst 2 x 2.2 cm. Moderate mucosal thickening in the right maxillary sinus with calcified inspissated content, underlying polyp formation suspected. The ostiomeatal complexes are patent but narrowed on the right side. Nasal septum is deviated minimally towards the right, no significant thickening of the turbinates and narrowing of the nasal cavities. No significant sphenoid sinusitis. No osseous destruction or wall thickening is identified. IMPRESSION: Sinusitis detailed above Reviewed, dictated and finalized at location P. IMPRESSION: Sinusitis detailed above
== END 2025-04-02 11:04 | disposition home or self-care (01) ==
PROVIDERS: PCP Family Medicine
DX: J31.0 Chronic rhinitis (principal); J34.2 Deviated nasal septum
CPT/HCPCS: 70486